=== PATIENT | female | born 1965 | race Caucasian/White ===

== ENCOUNTER 2021-05-10 10:02 | Inpatient (IN) | payer BC ==
[~2021-05-10] VITALS: Ht 162.6 cm; Wt 88.5 kg
--- NOTE | 2021-05-10 11:15 | PHYS DOC ---
Past Medical History Additional Past Medical Histor: HERNIA Past Surgical History: Other Additional Past Surgical Histo: COLPOSCOPY Smoking Status: Current Some Day Smoker Alcohol Use: Occasionally General Adult EDM: Chief Complaint: CHEST PAIN HPI: HPI: Patient is a 56-year-old female who presents to the emergency department with complaint of a slow onset of left sided chest pain that started approximately 6 AM this morning shortly after waking to get ready for work. Patient reports her pain was very low had a 1-2 out of 10 seem to be coming and going until approximately 7 AM it became constant and increased slowly to a 10 out of 10. Patient reports she made an appointment to see her primary care physician Dr. Garcia, states the office EKG machine was not working and they recommended she come to the emergency department for evaluation of her chest discomfort. Patient describes her pain as if someone is sitting on her chest currently rating her pain at a 9 out of 10. Radiates to her back, left shoulder and down her arm. Patient recent trauma. Does not take aspirin and was not treated with any medications at her primary care physician's office today. Patient does report nausea without vomiting abdominal pain constipation or diarrhea. Patient denies shortness of breath, chest or nasal congestion, denies chest palpitations, denies dizziness, syncopal or near syncopal episodes. Patient denies diaphoretic episodes. Patient denies increased urinary strain or increased thirst, denies increased urinary pressure, hematuria, or other dysuria. Patient reports a medical history of hypothyroid, ADHD, hyperlipidemia, fibromyalgia, reports this is not like her fibromyalgia pain. Patient reports a past surgical history of partial thyroidectomy on the left 2012, cholecystectomy and 1988. Patient reports her mother is generally healthy, father at age 70 of a sudden heart attack, reports paternal grandmother and grandfather in their 70s of heart attacks. Reports her brother and sister are generally healthy and denies history of diabetes or heart disease. Review of Systems: Review of Systems: 14 body systems of review of systems have been reviewed. See HPI for pertinent positives and negative responses, otherwise all other systems are negative, nonpertinent or noncontributory. Constitutional: Negative except as outlined in HPI above. Skin: Negative except as outlined in HPI above. Eyes: Negative except as outlined in HPI above. HENT: Negative except as outlined in HPI above. Respiratory: Negative except as outlined in HPI above. Cardiovascular: Negative except as outlined in HPI above. GI: Negative except as outlined in HPI above. : Negative except as outlined in HPI above. Musculoskeletal: Negative except as outlined in HPI above. Integument: Negative except as outlined in HPI above. Neurologic: Negative except as outlined in HPI above. Endocrine: Negative except as outlined in HPI above. Lymphatic: Negative except as outlined in HPI above. Psychiatric: Negative except as outlined in HPI above. Heart Score: C/O Chest Pain: Yes HEART Score for Chest Pain: HEART Score for Chest Pain Response (Comments) Value History Moderately Suspicious 1 ECG Normal 0 Age >45 - < 65 1 Risk Factors >3 Risk Factors or Hx CAD 2 Troponin < Normal Limit 0 Total 4 Risk Factors: Risk Factors: DM, Current or recent (<one month) smoker, HTN, HLP, family history of CAD, obesity. Risk Scores: Score 0 - 3: 2.5% MACE over next 6 weeks - Discharge Home Score 4 - 6: 20.3% MACE over next 6 weeks - Admit for Clinical Observation Score 7 - 10: 72.7% MACE over next 6 weeks - Early Invasive Strategies Current Medications: Current Medications Medications (Trade) Dose Ordered Sig/Lucas Start Time Stop Time Status Last Admin Dose Admin Aspirin (Aspirin Chewable) 324 mg 1X ONCE 05/10/21 11:00 05/10/21 11:01 UNV Physical Exam: PE: Constitutional: Well developed, well nourished, no acute distress, non-toxic appearance. 56-year-old female in no apparent distress. HENT: Normocephalic, atraumatic. Oropharynx moist, pink, no deep tissue infectious process appreciated. There is no lymphadenopathy of the head or neck appreciated. Bilateral TMs intact and within normal limits. Eyes: Conjunctiva normal, no discharge. Neck: Normal range of motion, no stridor. No JVD appreciated Cardiovascular: No cyanosis appreciated, distal cap refill less than 2 seconds. Regular rate and rhythm, heart sounds S1-S2 to auscultation. Lungs & Thorax: Patient is in no respiratory distress, lung sounds are clear to auscultation all lung joshi, normal work of breathing. No increased pain to palpation of the anterior thorax, equal rise and fall of chest, no subcu air, no crepitus appreciated. Abdomen: Nontender, no abnormalities noted. Bowel sounds normal all 4 quadrants, no pain to palpation of the abdomen, no skin discoloration appr eciated, old surgical scars present well-healed. Skin: Warm, dry, no erythema, no rash. Back: No tenderness, no deformities. Extremities: No tenderness, no cyanosis, no clubbing, ROM intact, no edema. Neurologic: Alert and oriented X 3, normal motor function, normal sensory function, no focal deficits noted. Psychologic: Affect normal, judgement normal, mood normal. Current Patient Data: Labs: Laboratory Tests Test 05/10/21 11:20 White Blood Count 9.5 x10^3/uL Red Blood Count 4.43 x10^6/uL Hemoglobin 13.0 g/dL Hematocrit 39.7 % Mean Corpuscular Volume 90 fL Mean Corpuscular Hemoglobin 29 pg Mean Corpuscular Hemoglobin Concent 33 g/dL Red Cell Distribution Width 14.1 % Platelet Count 314 x10^3/uL Neutrophils (%) (Auto) 55 % Lymphocytes (%) (Auto) 38 % Monocytes (%) (Auto) 5 % Eosinophils (%) (Auto) 1 % Basophils (%) (Auto) 2 % Neutrophils # (Auto) 5.2 x10^3/uL Lymphocytes # (Auto) 3.6 x10^3/uL Monocytes # (Auto) 0.4 x10^3/uL Eosinophils # (Auto) 0.1 x10^3/uL Basophils # (Auto) 0.1 x10^3/uL Prothrombin Time 11.3 SEC Prothromb Time International Ratio 0.8 D-Dimer (Monique) < 0.27 ug/mlFEU Sodium Level 141 mmol/L Potassium Level 4.2 mmol/L Chloride Level 103 mmol/L Carbon Dioxide Level 26 mmol/L Anion Gap 12 Blood Urea Nitrogen 11 mg/dL Creatinine 0.7 mg/dL Estimated GFR (Cockcroft-Gault) 86.6 BUN/Creatinine Ratio 16 Glucose Level 107 mg/dL Calcium Level 8.7 mg/dL Magnesium Level 2.0 mg/dL Total Bilirubin 0.2 mg/dL Aspartate Amino Transf (AST/SGOT) 23 U/L Alanine Aminotransferase (ALT/SGPT) 22 U/L Alkaline Phosphatase 66 U/L Troponin I High Sensitivity < 4 ng/L Total Protein 7.3 g/dL Albumin 3.5 g/dL Albumin/Globulin Ratio 0.9 Lipase 119 U/L Thyroid Stimulating Hormone (TSH) 0.656 uIU/mL Current Medications Medications (Trade) Dose Ordered Sig/Lucas Route PRN Reason Start Time Stop Time Status Last Admin Dose Admin Aspirin (Aspirin Chewable) 324 mg 1X ONCE PO 05/10/21 11:45 05/10/21 11:46 DC 05/10/21 11:53 Morphine Sulfate (Morphine Sulfate) 4 mg 1X ONCE IVP 05/10/21 11:45 05/10/21 11:46 DC 05/10/21 11:49 Ondansetron HCl (Zofran) 4 mg 1X ONCE IVP 05/10/21 11:45 05/10/21 11:46 DC 05/10/21 11:46 Nitroglycerin (Nitrostat) 0.4 mg PRN Q5MIN PRN SL CHEST PAIN 05/10/21 12:30 Vital Signs: Vital Signs Date Time Temp Pulse Resp B/P (MAP) Pulse Ox O2 Delivery O2 Flow Rate FiO2 05/10/21 10:30 98.1 94 18 139/81 (100) 97 Room Air 98.1 EKG: EKG: EKG performed at 10:16 AM by ED nursing staff shows a normal sinus rhythm without ectopy, heart rate is 88 bpm, CO interval 0.138, QTc interval 0.437, no acute STEMI, no ACS, no acute ischemia appreciated, EKG interpreted by ED attending physician Dr. Dior. Serial repeat EKG performed at 1226 by ED nursing staff shows a normal sinus rhythm without ectopy, heart rate is 71 bpm, CO interval 0.138, QTc interval 0.446, no acute STEMI, no ACS, no acute ischemia appreciated, EKG interpreted by ED attending physician Dr. Dior. Radiology/Procedures: Radiology/Procedures: REASON: Chest pain PROCEDURE: PORTABLE CHEST 1V XR CHEST 1V Clinical Indication: Reason: Chest pain / Spl. Instructions: / History: Comparison: None. Findings: The cardiomediastinal silhouette is normal. Lungs are clear. There is no pneumothorax. No pleural effusion is appreciated. No acute bone abnormality. IMPRESSION: No acute cardiopulmonary process. Electronically signed by: Jimmy Shah MD (05/10/2021 11:42 AM) [id number] Course & Med Decision Making: Course & Med Decision Making Pertinent Labs and Imaging studies reviewed. (See chart for details) 56-year-old female, vital signs reviewed, presents to the emergency department concerning left-sided chest pain radiation through to back left shoulder left arm. Physical examination is unremarkable, will order ED chest pain standard orders. Will give patient 324 chewable aspirin, Zofran for nausea, morphine for pain. Patient's chest x-ray is unremarkable, patient serial EKGs unremarkable, patient 's initial high-sensitivity troponin I is unremarkable, 3-hour serial high- sensitivity troponins pending, urinalysis assay still pending, patient reports nausea is relieved, pain has decreased to a 7 out of 10, will order sublingual nitroglycerin every 5 minutes x3 as needed chest pain. The patient HEART score equals 4, discussed with patient recommended admission to hospital for chest pain, patient does have a family history of sudden cardiac , patient is a cigarette smoker. Patient is amenable to ED admission planning. Discussed patient case and ED work-up with inpatient management physician Dr. Huntley who agrees patient's case warrants admission to the telemetry unit, will consult cardiology, patient is awaiting telemetry bed assignment by power house control room operator at this time. Patient's current vital signs heart rate 71 bpm, blood pressure 124/75, 99% room air saturation, 97.8 oral temperature. Patient has not yet been administered sublingual nitroglycerin, chest pain is currently a 7 out of 10. Unique Disclaimer: Unique Disclaimer: This electronic medical record was generated, in whole or in part, using a voice recognition dictation system. Departure Departure Impression: Primary Impression: Chest pain Qualified Codes: R07.9 - Chest pain, unspecified Disposition: ADMITTED INPATIENT Admitting Physician: CRISTIS (Admit to Dr. Huntley, consult cardiology Dr. Antonio) Condition: GUARDED Referrals: NO PCP (PCP) CHIRAG OLIVAS APRN May 10, 2021 11:15
[2021-05-10 11:33] LABS: BASO # 0.1 x10^3/uL (0.0-0.2); BASO % 2 % (0-3); EOS # 0.1 x10^3/uL (0.0-0.7); EOS % 1 % (0-3); HEMATOCRIT 39.7 % (36.0-47.0); LYMPH # 3.6 x10^3/uL (1.0-4.8); LYMPH % 38 % (24-48); MEAN CORPUSCULAR HEMOGLOBIN 29 pg (25-35); MEAN CORPUSCULAR HGB CONC 33 g/dL (31-37); MEAN CORPUSCULAR VOLUME 90 fL (79-100); MONO # 0.4 x10^3/uL (0.0-1.1); MONO % 5 % (0-9); NEUT # 5.2 x10^3/uL (1.8-7.7); NEUT % 55 % (31-73); PLATELET COUNT 314 x10^3/uL (140-400); RED BLOOD COUNT 4.43 x10^6/uL (3.50-5.40); RED CELL DISTRIBUTION WIDTH 14.1 % (11.5-14.5); WHITE BLOOD COUNT 9.5 x10^3/uL (4.0-11.0)
[2021-05-10 11:40] LABS: PROTHROMBIN TIME PATIENT 11.3 SEC (11.7-14.0)
[2021-05-10 11:43] LABS: D-DIMER < 0.27 ug/mlFEU (0.00-0.50)
[2021-05-10] MEDS ORDERED: MORPHINE SULFATE 4 MG/ML INJ. IVP ONE (11:45)
[2021-05-10] MEDS ORDERED: ONDANSETRON PF 4 MG/2 ML VIAL. IVP ONE (11:45)
[2021-05-10] MEDS ORDERED: ASPIRIN CHEWABLE 81 MG TABLET. PO ONE (11:45)
--- NOTE | 2021-05-10 11:45 | RAD ---
XR CHEST 1V Clinical Indication: Reason: Chest pain / Spl. Instructions: / History: Comparison: None. Findings: The cardiomediastinal silhouette is normal. Lungs are clear. There is no pneumothorax. No pleural eff usion is appreciated. No acute bone abnormality. IMPRESSION: No acute cardiopulmonary process. Electronically signed by: Jimmy Shah MD (05/10/2021 11:42 AM) [id number]
[2021-05-10 11:55] LABS: CALCIUM 8.7 mg/dL (8.5-10.1); CREATININE 0.7 mg/dL (0.6-1.0); GFR 86.6; POTASSIUM 4.2 mmol/L (3.5-5.1)
[2021-05-10 12:02] LABS: ALBUMIN 3.5 g/dL (3.4-5.0); ALBUMIN/GLOBULIN RATIO 0.9 (1.0-1.7); TOTAL BILIRUBIN 0.2 mg/dL (0.2-1.0); TOTAL PROTEIN 7.3 g/dL (6.4-8.2)
[2021-05-10] MEDS ORDERED: CALCIUM CARBONATE 500 MG TAB.CHEW PO PRN (12:45)
[2021-05-10] MEDS ORDERED: MORPHINE SULFATE 2 MG/ML INJ. IV PRN ×2 (12:45)
[2021-05-10] MEDS ORDERED: ZOLPIDEM 5 MG TABLET. PO PRN (12:45)
[2021-05-10] MEDS ORDERED: ONDANSETRON PF 4 MG/2 ML VIAL. IVP PRN (12:45)
[2021-05-10] MEDS ORDERED: ELECTROLYTE (NON-ICU) PROTOCOL. MC PRN (12:45)
[2021-05-10] MEDS ORDERED: ACETAMINOPHEN 325 MG TABLET. PO PRN (12:45)
[2021-05-10] MEDS: NITROGLYCERIN SUBLINGUAL 0.4 MG BOTTLE OF 25. SL PRN ×3 (12:51→19:02)
[2021-05-10 15:00] VITALS: BP 99/63
[2021-05-10] MEDS: NICOTINE 14MG PATCH. TD SCH (16:01)
[2021-05-10] MEDS: HEPARIN for SUB-Q USE 5,000 UNIT/ML VIAL. SQ SCH ×2 (16:05→21:04)
--- NOTE | 2021-05-10 18:06 | EKG ---
[facility] [address] [place] [address] Test Date: 2021-05-10 Test Time: 11:29:00 Pat Name: LUIS LACEY Department: Room: 210 1 Gender: F Director Of Tax Services: : 1965 Requested By: CHIRAG OLIVAS Order Number: [id number] Reading MD: Young Regan Measurements Intervals [place] Rate: 88 P: 47 KS: 130 QRS: 51 QRSD: 82 T: 41 QT: 358 QTc: 437 Interpretive Statements SINUS RHYTHM NORMAL ECG RI6.02 No previous ECG available for comparison Electronically Signed On 05-15-2021 18:54:47 RETAIL MANAGER by Yougn Regan
[2021-05-10] MEDS ORDERED: LEVO50TA5 PO (18:26)
[2021-05-10] MEDS ORDERED: TRAMADOL HCL (18:26)
[2021-05-10] MEDS ORDERED: adderall (18:26)
[2021-05-10] MEDS ORDERED: CITA40TA6 PO (18:26)
[2021-05-10 19:00] VITALS: BP 124/71
--- NOTE | 2021-05-10 19:00 | NUR ---
Pt. complaining of chest pain radiating to left jaw & arm. Same as earlier per patient. 1 tablet of Nitroglycerin given to pt as this helped relieve her symptoms earlier. VSS. Will continue to monitor.
--- NOTE | 2021-05-10 19:08 | PDOC1 ---
History and Physical Date of Service: DOS: DATE: 05/10/21 TIME: 19:08 Chief Complaint: Chief Complain: chest pain History of Present Illness: HPI: Patient is a 56-year-old female who presents to the emergency department with complaint of a slow onset of left sided chest pain that started approximately 6 AM this morning shortly after waking to get ready for work. Patient reports her pain was very low had a 1-2 out of 10 seem to be coming and going until approximately 7 AM it became constant and increased slowly to a 10 out of 10. Patient reports she made an appointment to see her primary care physician Dr. Garcia, states the office EKG machine was not working and they recommended she come to the emergency department for evaluation of her chest discomfort. Patient describes her pain as if someone is sitting on her chest currently rating her pain at a 9 out of 10. Radiates to her back, left shoulder and down her arm. Patient recent trauma. Does not take aspirin and was not treated with any medications at her primary care physician's office today. Patient does report nausea without vomiting abdominal pain constipation or diarrhea. Patient denies shortness of breath, chest or nasal congestion, denies chest palpitations, denies dizziness, syncopal or near syncopal episodes. Patient denies diaphoretic episodes. Patient denies increased urinary strain or increased thirst, denies increased urinary pressure, hematuria, or other dysuria. Patient reports a medical history of hypothyroid, ADHD, hyperlipidemia, fibromyalgia, reports this is not like her fibromyalgia pain. Patient reports a past surgical history of partial thyroidectomy on the left 2012, cholecystectomy and 1988. Patient reports her mother is generally healthy, father at age 70 of a sudden heart attack, reports paternal grandmother and grandfather in their 70s of heart attacks. Reports her brother and sister are generally healthy and denies history of diabetes or heart disease. Past Medical/Surgical History: PMH/PSH: hypothyroid, ADHD, hyperlipidemia, fibromyalgia Allergies: Allergies: Coded Allergies: No Known Drug Allergies (Unverified , 05/10/21) Family History: Family History: CAD Social History: Social History: daily tobacco use, occ alcohol, denies drugs Current Medications: Current Medications Current Medications Aspirin (Aspirin Chewable) 324 mg 1X ONCE PO Last administered on 05/10/21at 11:53; Start 05/10/21 at 11:45; Stop 05/10/21 at 11:46; Status DC Morphine Sulfate (Morphine Sulfate) 4 mg 1X ONCE IVP Last administered on 05/10/21at 11:49; Start 05/10/21 at 11:45; Stop 05/10/21 at 11:46; Status DC Ondansetron HCl (Zofran) 4 mg 1X ONCE IVP Last administered on 05/10/21at 11:46; Start 05/10/21 at 11:45; Stop 05/10/21 at 11:46; Status DC Nitroglycerin (Nitrostat) 0.4 mg PRN Q5MIN PRN SL CHEST PAIN Last administered on 05/10/21at 19:02; Start 05/10/21 at 12:30 Ondansetron HCl (Zofran) 4 mg PRN Q6HRS PRN IVP NAUSEA/VOMITING; Start 05/10/21 at 12:45 Calcium Carbonate/ Glycine (Tums) 500 mg PRN Q3HRS PRN PO UPSET STOMACH; Start 05/10/21 at 12:45 Zolpidem Tartrate (Ambien) 5 mg PRN QHS PRN PO INSOMNIA, MAY REPEAT IN 1HR; Start 05/10/21 at 12:45 Info (Non-Icu Electrolyte Protocol) 1 ea PRN DAILY PRN MC SEE COMMENTS; Start 05/10/21 at 12:45 Morphine Sulfate (Morphine Sulfate) 1 mg PRN Q1HR PRN IV PAIN; Start 05/10/21 at 12:45 Morphine Sulfate (Morphine Sulfate) 2 mg PRN Q1HR PRN IV PAIN; Start 05/10/21 at 12:45 Acetaminophen (Tylenol) 650 mg PRN Q6HRS PRN PO Headaches, Temp > 101.5F; Start 05/10/21 at 12:45 Senna/Docusate Sodium (Senna Plus) 1 tab BID PO ; Start 05/10/21 at 21:00 Heparin Sodium (Porcine) (Heparin Sodium) 5,000 unit Q8HRS SQ Last administered on 05/10/21at 16:05; Start 05/10/21 at 14:00 Nicotine (Nicoderm Cq 14mg) 1 patch DAILY TD Last administered on 05/10/21at 16:01; Start 05/10/21 at 16:00 Active Scripts Active Reported [adderall] [tramadol HCL] Levothyroxine Sodium 50 Mcg Tablet 1 Tab PO DAILY Citalopram Hbr (Citalopram Hydrobromide) 40 Mg Tablet 1 Tab PO DAILY ROS: Review of Systems Review of System Unless noted in HPI 14 point review systems was negative Physical Exam: Vital Signs: Vital Signs Date Time Temp Pulse Resp B/P (MAP) Pulse Ox O2 Delivery O2 Flow Rate FiO2 05/10/21 19:02 78 124/71 05/10/21 18:27 Room Air 05/10/21 15:00 97.8 18 100 97.8 Physcial Exam: GEN: No apparent distress. Alert and oriented HEENT: Normal cephalic, atraumatic, external auditory canals are patent EYES: Extraocular muscles are intact, pupil are equally round and reactive to light and accommodation MUSCULOSKELETAL: Well developed , well nourished, good range of motion ENDOCRINE: No thyromegaly was palpated LYMPHATICS: No cervical chain or axillary nodes were noted HEMATOPOIETIC: No bruising NECK: Supple, no JVD, no thyromegaly was noted LUNGS: Clear to auscultation in all lung joshi without rhonchi or wheezing HEART: RRR, S!, S2 present. Peripheral pulses intact, no obvious murmurs noted ABDOMEN: Soft, nontender. Positive bowel sounds, no organomegaly, normal bowel sounds EXTREMITIES: Without clubbing, cyanosis, or edema. Pedal pulses intact. Negative Homans sign NEUROLOGIC: Normal speech and tone. A&O x 3, moves all extremities, no obvious focal deficits PSYCHIATRIC: Normal affect, normal mood. Stable SKIN: No ulcerations or rashes, good skin turgor, no jaundice VASCULAR: Good capillary refill, neurovascular bundle appears to be intact Labs: Labs: Laboratory Tests Test 05/10/21 11:20 05/10/21 13:29 05/10/21 17:15 White Blood Count 9.5 x10^3/uL (4.0-11.0) Red Blood Count 4.43 x10^6/uL (3.50-5.40) Hemoglobin 13.0 g/dL (12.0-15.5) Hematocrit 39.7 % (36.0-47.0) Mean Corpuscular Volume 90 fL (79-100) Mean Corpuscular Hemoglobin 29 pg (25-35) Mean Corpuscular Hemoglobin Concent 33 g/dL (31-37) Red Cell Distribution Width 14.1 % (11.5-14.5) Platelet Count 314 x10^3/uL (140-400) Neutrophils (%) (Auto) 55 % (31-73) Lymphocytes (%) (Auto) 38 % (24-48) Monocytes (%) (Auto) 5 % (0-9) Eosinophils (%) (Auto) 1 % (0-3) Basophils (%) (Auto) 2 % (0-3) Neutrophils # (Auto) 5.2 x10^3/uL (1.8-7.7) Lymphocytes # (Auto) 3.6 x10^3/uL (1.0-4.8) Monocytes # (Auto) 0.4 x10^3/uL (0.0-1.1) Eosinophils # (Auto) 0.1 x10^3/uL (0.0-0.7) Basophils # (Auto) 0.1 x10^3/uL (0.0-0.2) Prothrombin Time 11.3 SEC (11.7-14.0) Prothromb Time International Ratio 0.8 (0.8-1.1) D-Dimer (Monique) < 0.27 ug/mlFEU Sodium Level 141 mmol/L (136-145) Potassium Level 4.2 mmol/L (3.5-5.1) Chloride Level 103 mmol/L (98-107) Carbon Dioxide Level 26 mmol/L (21-32) Anion Gap 12 (6-14) Blood Urea Nitrogen 11 mg/dL (7-20) Creatinine 0.7 mg/dL (0.6-1.0) Estimated GFR (Cockcroft-Gault) 86.6 BUN/Creatinine Ratio 16 (6-20) Glucose Level 107 mg/dL (70-99) Calcium Level 8.7 mg/dL (8.5-10.1) Magnesium Level 2.0 mg/dL (1.8-2.4) Total Bilirubin 0.2 mg/dL (0.2-1.0) Aspartate Amino Transf (AST/SGOT) 23 U/L (15-37) Alanine Aminotransferase (ALT/SGPT) 22 U/L (14-59) Alkaline Phosphatase 66 U/L (46-116) Troponin I High Sensitivity < 4 ng/L (4-50) < 4 ng/L (4-50) 6 ng/L (4-50) Total Protein 7.3 g/dL (6.4-8.2) Albumin 3.5 g/dL (3.4-5.0) Albumin/Globulin Ratio 0.9 (1.0-1.7) Lipase 119 U/L (73-393) Thyroid Stimulating Hormone (TSH) 0.656 uIU/mL (0.358-3.74) Laboratory Tests Test 05/10/21 11:20 05/10/21 13:29 05/10/21 17:15 White Blood Count 9.5 x10^3/uL (4.0-11.0) Red Blood Count 4.43 x10^6/uL (3.50-5.40) Hemoglobin 13.0 g/dL (12.0-15.5) Hematocrit 39.7 % (36.0-47.0) Mean Corpuscular Volume 90 fL (79-100) Mean Corpuscular Hemoglobin 29 pg (25-35) Mean Corpuscular Hemoglobin Concent 33 g/dL (31-37) Red Cell Distribution Width 14.1 % (11.5-14.5) Platelet Count 314 x10^3/uL (140-400) Neutrophils (%) (Auto) 55 % (31-73) Lymphocytes (%) (Auto) 38 % (24-48) Monocytes (%) (Auto) 5 % (0-9) Eosinophils (%) (Auto) 1 % (0-3) Basophils (%) (Auto) 2 % (0-3) Neutrophils # (Auto) 5.2 x10^3/uL (1.8-7.7) Lymphocytes # (Auto) 3.6 x10^3/uL (1.0-4.8) Monocytes # (Auto) 0.4 x10^3/uL (0.0-1.1) Eosinophils # (Auto) 0.1 x10^3/uL (0.0-0.7) Basophils # (Auto) 0.1 x10^3/uL (0.0-0.2) Prothrombin Time 11.3 SEC (11.7-14.0) Prothromb Time International Ratio 0.8 (0.8-1.1) D-Dimer (Monique) < 0.27 ug/mlFEU Sodium Level 141 mmol/L (136-145) Potassium Level 4.2 mmol/L (3.5-5.1) Chloride Level 103 mmol/L (98-107) Carbon Dioxide Level 26 mmol/L (21-32) Anion Gap 12 (6-14) Blood Urea Nitrogen 11 mg/dL (7-20) Creatinine 0.7 mg/dL (0.6-1.0) Estimated GFR (Cockcroft-Gault) 86.6 BUN/Creatinine Ratio 16 (6-20) Glucose Level 107 mg/dL (70-99) Calcium Level 8.7 mg/dL (8.5-10.1) Magnesium Level 2.0 mg/dL (1.8-2.4) Total Bilirubin 0.2 mg/dL (0.2-1.0) Aspartate Amino Transf (AST/SGOT) 23 U/L (15-37) Alanine Aminotransferase (ALT/SGPT) 22 U/L (14-59) Alkaline Phosphatase 66 U/L (46-116) Troponin I High Sensitivity < 4 ng/L (4-50) < 4 ng/L (4-50) 6 ng/L (4-50) Total Protein 7.3 g/dL (6.4-8.2) Albumin 3.5 g/dL (3.4-5.0) Albumin/Globulin Ratio 0.9 (1.0-1.7) Lipase 119 U/L (73-393) Thyroid Stimulating Hormone (TSH) 0.656 uIU/mL (0.358-3.74) Assessment/Plan Assessment/Plan Unstable angina, history of hypothyroid ADHD hyperlipidemia fibromyalgia -1 day history of chest pain. No known cardiac history but has family history of [place] later in life -Received 324 aspirin in emergency room. Pain mildly controlled with morphine -Cardiology consult -Trend troponins -Home meds as indicated -DVT prophylaxis -Cardiac diet Justifications for Admission Other Justification COLETTE BARRAGAN MD May 10, 2021 19:08
--- NOTE | 2021-05-10 19:30 | NUR ---
All chest pain/radiating pain relieved after nitro administration. Will continue to monitor.
[2021-05-10] MEDS: SENNOSIDES/DOCUSATE 8.6/50MG TABLET. PO SCH (21:03)
[2021-05-10 22:33] VITALS: BP 112/69
[2021-05-10 22:56] LABS: BILIRUBIN,URINE NEGATIVE (NEG); CLARITY,URINE CLEAR; COLOR,URINE YELLOW; NITRITE,URINE NEGATIVE (NEG); PROTEIN,URINE NEGATIVE (NEG-TRACE); UROBILINOGEN,URINE 0.2 mg/dL (0.2 mg/dL)
[2021-05-10 22:59] LABS: BACTERIA,URINE 0 /HPF (0-FEW); RBC,URINE 0 /HPF (0-2)
[2021-05-11] VITALS (12 sets, daily range): BP systolic 90–119; BP diastolic 62–76
[2021-05-11] MEDS: HEPARIN for SUB-Q USE 5,000 UNIT/ML VIAL. SQ SCH ×2 (06:09→14:00)
[2021-05-11] MEDS: NICOTINE 14MG PATCH. TD SCH (09:00)
[2021-05-11] MEDS: SENNOSIDES/DOCUSATE 8.6/50MG TABLET. PO SCH (09:00)
--- NOTE | 2021-05-11 09:39 | PDOC ---
[employer] PROGRESS NOTE Date of Service DOS: DATE: 05/11/21 TIME: 09:36 Chief Complaint Chief Complaint Unstable angina, history of hypothyroid ADHD hyperlipidemia fibromyalgia -1 day history of chest pain. No known cardiac history but has family history of [place] later in life -Received 324 aspirin in emergency room. Pain mildly controlled with morphine -pain improved with Nitro -Cardiology consult -Trend troponins --> negative x3 -Home meds as indicated -DVT prophylaxis -Cardiac diet History of Present Illness History of Present Illness 05/11 Patient evaluated examined at bedside. She was resting in bed asleep. Overnight had some chest pain with radiation to right arm. Cardiology consulted. If cleared by cardiology could possibly discharge this afternoon but may need further work-up. Discussed with bedside RN. Vitals/I&O Vitals/I&O: Vital Signs Date Time Temp Pulse Resp B/P (MAP) Pulse Ox O2 Delivery O2 Flow Rate FiO2 05/11/21 07:54 Room Air 05/11/21 07:00 98.0 70 18 103/70 (81) 93 98.0 I & O 05/10/21 05/10/21 05/11/21 15:00 23:00 07:00 Intake Total 480 ml Output Total 800 ml Balance -320 ml Physical Exam General: Alert, Oriented X3, Cooperative Heart: Regular rate, Normal S1, Normal S2 Lungs: Clear Abdomen: Normal bowel sounds, Soft, No tenderness Extremities: No edema, Normal pulses Skin: No significant lesion Labs Labs: Laboratory Tests Test 05/10/21 11:20 05/10/21 13:29 05/10/21 17:15 05/10/21 22:45 White Blood Count 9.5 x10^3/uL (4.0-11.0) Red Blood Count 4.43 x10^6/uL (3.50-5.40) Hemoglobin 13.0 g/dL (12.0-15.5) Hematocrit 39.7 % (36.0-47.0) Mean Corpuscular Volume 90 fL (79-100) Mean Corpuscular Hemoglobin 29 pg (25-35) Mean Corpuscular Hemoglobin Concent 33 g/dL (31-37) Red Cell Distribution Width 14.1 % (11.5-14.5) Platelet Count 314 x10^3/uL (140-400) Neutrophils (%) (Auto) 55 % (31-73) Lymphocytes (%) (Auto) 38 % (24-48) Monocytes (%) (Auto) 5 % (0-9) Eosinophils (%) (Auto) 1 % (0-3) Basophils (%) (Auto) 2 % (0-3) Neutrophils # (Auto) 5.2 x10^3/uL (1.8-7.7) Lymphocytes # (Auto) 3.6 x10^3/uL (1.0-4.8) Monocytes # (Auto) 0.4 x10^3/uL (0.0-1.1) Eosinophils # (Auto) 0.1 x10^3/uL (0.0-0.7) Basophils # (Auto) 0.1 x10^3/uL (0.0-0.2) Prothrombin Time 11.3 SEC (11.7-14.0) Prothromb Time International Ratio 0.8 (0.8-1.1) D-Dimer (Monique) < 0.27 ug/mlFEU Sodium Level 141 mmol/L (136-145) Potassium Level 4.2 mmol/L (3.5-5.1) Chloride Level 103 mmol/L (98-107) Carbon Dioxide Level 26 mmol/L (21-32) Anion Gap 12 (6-14) Blood Urea Nitrogen 11 mg/dL (7-20) Creatinine 0.7 mg/dL (0.6-1.0) Estimated GFR (Cockcroft-Gault) 86.6 BUN/Creatinine Ratio 16 (6-20) Glucose Level 107 mg/dL (70-99) Calcium Level 8.7 mg/dL (8.5-10.1) Magnesium Level 2.0 mg/dL (1.8-2.4) Total Bilirubin 0.2 mg/dL (0.2-1.0) Aspartate Amino Transf (AST/SGOT) 23 U/L (15-37) Alanine Aminotransferase (ALT/SGPT) 22 U/L (14-59) Alkaline Phosphatase 66 U/L (46-116) Troponin I High Sensitivity < 4 ng/L (4-50) < 4 ng/L (4-50) 6 ng/L (4-50) Total Protein 7.3 g/dL (6.4-8.2) Albumin 3.5 g/dL (3.4-5.0) Albumin/Globulin Ratio 0.9 (1.0-1.7) Lipase 119 U/L (73-393) Thyroid Stimulating Hormone (TSH) 0.656 uIU/mL (0.358-3.74) Urine Collection Type Unknown Urine Color Yellow Urine Clarity Clear Urine pH 7.0 (<5.0-8.0) Urine Specific [place] 1.015 (1.000-1.030) Urine Protein Negative mg/dL (NEG-TRACE) Urine Glucose (UA) Negative mg/dL (NEG) Urine Ketones (Stick) Negative mg/dL (NEG) Urine Blood Negative (NEG) Urine Nitrite Negative (NEG) Urine Bilirubin Negative (NEG) Urine Urobilinogen Dipstick 0.2 mg/dL (0.2 mg/dL) Urine Leukocyte Esterase Negative (NEG) Urine RBC 0 /HPF (0-2) Urine WBC 1-4 /HPF (0-4) Urine Squamous Epithelial Cells Mod /LPF Urine Bacteria 0 /HPF (0-FEW) Comment Review of Relevant I have reviewed the following items aniya (where applicable) has been applied. Medications: Current Medications Medications (Trade) Dose Ordered Sig/Lucas Route PRN Reason Start Time Stop Time Status Last Admin Dose Admin Aspirin (Aspirin Chewable) 324 mg 1X ONCE PO 05/10/21 11:45 05/10/21 11:46 DC 05/10/21 11:53 Morphine Sulfate (Morphine Sulfate) 4 mg 1X ONCE IVP 05/10/21 11:45 05/10/21 11:46 DC 05/10/21 11:49 Ondansetron HCl (Zofran) 4 mg 1X ONCE IVP 05/10/21 11:45 05/10/21 11:46 DC 05/10/21 11:46 Nitroglycerin (Nitrostat) 0.4 mg PRN Q5MIN PRN SL CHEST PAIN 05/10/21 12:30 05/10/21 19:02 Zolpidem Tartrate (Ambien) 5 mg PRN QHS PRN PO INSOMNIA, MAY REPEAT IN 1HR 05/10/21 12:45 05/10/21 21:03 Senna/Docusate Sodium (Senna Plus) 1 tab BID PO 05/10/21 21:00 05/10/21 21:03 Heparin Sodium (Porcine) (Heparin Sodium) 5,000 unit Q8HRS SQ 05/10/21 14:00 05/11/21 06:09 Nicotine (Nicoderm Cq 14mg) 1 patch DAILY TD 05/10/21 16:00 05/10/21 16:01 Justifications for Admission Other Justification COLETTE BARRAGAN MD May 11, 2021 09:39
--- NOTE | 2021-05-11 09:52 | NUR ---
SW following. Discussed with RN, pt from home, room air, NPO. Cardiology following - cardiac work up pending. RN advised no SW needs at this time. SW will continue to follow.
[2021-05-11] MEDS ORDERED: IV NORMAL SALINE 1000ML BAG 1,000 ML IV ONE (10:30)
--- NOTE | 2021-05-11 10:41 | PDOC2 ---
JEN VALENCIA CHAIN MENDER 05/11/21 1041: CARDIAC CONSULT DATE OF CONSULT Date of Consult DATE: 05/11/21 TIME: 10:29 REASON FOR CONSULT Reason for Consult: Chest pain REFERRING PHYSICIAN Referring Physician: Johnathan SOURCE Source: Chart review, Patient HISTORY OF PRESENT ILLNESS HISTORY OF PRESENT ILLNESS This is a pleasant 56 yo female admitted for complains of chest pain. Reports that this is like someone is sitting on her chest and pain radiating to jaw and left arm. Also associated with nausea, diaphoresis and SOA. This has been ongoing for the last 2 weeks and 2 episodes where it lasted about 15-30 min before getting any better. Her symptoms yesterday lasted for 2 hours and did not get better until ASA and 2 NTG in ED. No prior CAD, VTE, arrhythmias. Also no recent covid-19 and she is vaccinated. Denies any falls or any recent injury and no GERD. She was also having palpitations during her symptoms. She has not take adderall in a while. No recreational drug use but a chronic tobaccoism. PAST MEDICAL HISTORY Psych: Anxiety, Other (ADHD) Musculoskeletal: Osteoarthritis Rheumatologic: Fibromyalgia ENT: Allergic Rhinitis Endocrine: Hypothyroidism (thyroid nodule), Other (metabolic syndrome) Dermatology: No pertinent hx PAST SURGICAL HISTORY Past Surgical History: Cholecystectomy, , Other (partial thyroidec erick, D&C) FAMILY HISTORY Family History: Coronary Artery Disease (father at 48) SOCIAL HISTORY Smoke: 1 pack per day ALCOHOL: rare Drugs: None Lives: with Family CURRENT MEDICATIONS CURRENT MEDICATIONS Current Medications Medications (Trade) Dose Ordered Sig/Lucas Route PRN Reason Start Time Stop Time Status Last Admin Dose Admin Aspirin (Aspirin Chewable) 324 mg 1X ONCE PO 05/10/21 11:45 05/10/21 11:46 DC 05/10/21 11:53 Morphine Sulfate (Morphine Sulfate) 4 mg 1X ONCE IVP 05/10/21 11:45 05/10/21 11:46 DC 05/10/21 11:49 Ondansetron HCl (Zofran) 4 mg 1X ONCE IVP 05/10/21 11:45 05/10/21 11:46 DC 05/10/21 11:46 Nitroglycerin (Nitrostat) 0.4 mg PRN Q5MIN PRN SL CHEST PAIN 05/10/21 12:30 05/10/21 19:02 Zolpidem Tartrate (Ambien) 5 mg PRN QHS PRN PO INSOMNIA, MAY REPEAT IN 1HR 05/10/21 12:45 05/10/21 21:03 Senna/Docusate Sodium (Senna Plus) 1 tab BID PO 05/10/21 21:00 05/10/21 21:03 Heparin Sodium (Porcine) (Heparin Sodium) 5,000 unit Q8HRS SQ 05/10/21 14:00 05/11/21 06:09 Nicotine (Nicoderm Cq 14mg) 1 patch DAILY TD 05/10/21 16:00 05/10/21 16:01 ALLERGIES ALLERGIES: Coded Allergies: No Known Drug Allergies (Unverified , 05/10/21) ROS Review of System 14 point ROS evaluated with pertinent positives noted per HPI PHYSICAL EXAM General: Alert, Oriented X3, Cooperative, No acute distress HEENT: Atraumatic, Mucous membr. moist/pink Lungs: Clear to auscultation, Normal air movement Heart: Regular rate (SR), Normal S1, Normal S2, No murmurs Abdomen: Soft, No tenderness Extremities: No cyanosis, No edema Skin: No breakdown, No significant lesion Neuro: Normal speech, Sensation intact Psych/Mental Status: Mental status NL, Mood NL MUSCULOSKELETAL: Osteoarthritic changes both hands VITALS/I&O VITALS/I&O: Vital Signs Date Time Temp Pulse Resp B/P (MAP) Pulse Ox O2 Delivery O2 Flow Rate FiO2 05/11/21 07:54 Room Air 05/11/21 07:00 98.0 70 18 103/70 (81) 93 98.0 I & O 05/10/21 05/10/21 05/11/21 15:00 23:00 07:00 Intake Total 480 ml Output Total 800 ml Balance -320 ml LABS Lab: Laboratory Tests Test 05/10/21 11:20 05/10/21 13:29 05/10/21 17:15 05/10/21 22:45 White Blood Count 9.5 x10^3/uL (4.0-11.0) Red Blood Count 4.43 x10^6/uL (3.50-5.40) Hemoglobin 13.0 g/dL (12.0-15.5) Hematocrit 39.7 % (36.0-47.0) Mean Corpuscular Volume 90 fL (79-100) Mean Corpuscular Hemoglobin 29 pg (25-35) Mean Corpuscular Hemoglobin Concent 33 g/dL (31-37) Red Cell Distribution Width 14.1 % (11.5-14.5) Platelet Count 314 x10^3/uL (140-400) Neutrophils (%) (Auto) 55 % (31-73) Lymphocytes (%) (Auto) 38 % (24-48) Monocytes (%) (Auto) 5 % (0-9) Eosinophils (%) (Auto) 1 % (0-3) Basophils (%) (Auto) 2 % (0-3) Neutrophils # (Auto) 5.2 x10^3/uL (1.8-7.7) Lymphocytes # (Auto) 3.6 x10^3/uL (1.0-4.8) Monocytes # (Auto) 0.4 x10^3/uL (0.0-1.1) Eosinophils # (Auto) 0.1 x10^3/uL (0.0-0.7) Basophils # (Auto) 0.1 x10^3/uL (0.0-0.2) Prothrombin Time 11.3 SEC (11.7-14.0) L Prothrombin Time INR 0.8 (0.8-1.1) D-Dimer (Monique) < 0.27 ug/mlFEU Sodium Level 141 mmol/L (136-145) Potassium Level 4.2 mmol/L (3.5-5.1) Chloride Level 103 mmol/L (98-107) Carbon Dioxide Level 26 mmol/L (21-32) Anion Gap 12 (6-14) Blood Urea Nitrogen 11 mg/dL (7-20) Creatinine 0.7 mg/dL (0.6-1.0) Estimated GFR (Cockcroft-Gault) 86.6 BUN/Creatinine Ratio 16 (6-20) Glucose Level 107 mg/dL (70-99) H Calcium Level 8.7 mg/dL (8.5-10.1) Magnesium Level 2.0 mg/dL (1.8-2.4) Total Bilirubin 0.2 mg/dL (0.2-1.0) Aspartate Amino Transferase (AST) 23 U/L (15-37) Alanine Aminotransferase (ALT) 22 U/L (14-59) Alkaline Phosphatase 66 U/L (46-116) Troponin I High Sensitivity < 4 ng/L (4-50) L < 4 ng/L (4-50) L 6 ng/L (4-50) Total Protein 7.3 g/dL (6.4-8.2) Albumin 3.5 g/dL (3.4-5.0) Albumin/Globulin Ratio 0.9 (1.0-1.7) L Lipase 119 U/L (73-393) Thyroid Stimulating Hormone (TSH) 0.656 uIU/mL (0.358-3.74) Urine Collection Type Unknown Urine Color Yellow Urine Clarity Clear Urine pH 7.0 (<5.0-8.0) Urine Specific [place] 1.015 (1.000-1.030) Urine Protein Negative mg/dL (NEG-TRACE) Urine Glucose (UA) Negative mg/dL (NEG) Urine Ketones (Stick) Negative mg/dL (NEG) Urine Blood Negative (NEG) Urine Nitrite Negative (NEG) Urine Bilirubin Negative (NEG) Urine Urobilinogen Dipstick 0.2 mg/dL (0.2 mg/dL) Urine Leukocyte Esterase Negative (NEG) Urine RBC 0 /HPF (0-2) Urine WBC 1-4 /HPF (0-4) Urine Squamous Epithelial Cells Mod /LPF Urine Bacteria 0 /HPF (0-FEW) Laboratory Tests 05/10/21 11:20 Laboratory Tests 05/10/21 11:20 ASSESSMENT/PLAN ASSESSMENT/PLAN 1. Chest pain: UA features 2. Chronic tobacco use: 48 pk yr 3. Family hx of premature CAD 4. Obesity 5. Metabolic syndrome 6. Hypothyroidism: on replacement. TSH on goal Recommendations 1. UA features and concerning s/s progressive CP relieved by x2 NTG. High pro bability with pretest CAD. Ischemic workup discussed and would like to proceed with [facility]. Risks and benefits discussed 2. ASA 3. FLP 4. Smoking cessation THAIS CRAIN MD 05/12/21 1201: CARDIAC CONSULT ASSESSMENT/PLAN ASSESSMENT/PLAN Late entry for 05/11/21. Pt. seen and examined. Agree with above FINISHING ROOM OPERATOR note. Heart cath did not reveal any significant obstructive pathology. JEN VALENCIA APRN May 11, 2021 10:41 THAIS CRAIN MD May 12, 2021 12:01
[2021-05-11 12:08] LABS: CHOLESTEROL/HDL RATIO 6.1
[2021-05-11] MEDS ORDERED: LIDOCAINE 1% PF 2 ML VIAL. ONE (13:39)
[2021-05-11] MEDS ORDERED: IODIXANOL 320 MG/ML 100 ML VIAL. ONE (13:40)
[2021-05-11] MEDS ORDERED: HEPARIN for IV BOLUS 10,000 UNIT/10 ML VIAL. ONE (13:55)
[2021-05-11] MEDS ORDERED: NITROGLYCERIN 200 MCG/2 ML SYRINGE FOR CATH/VASC LAB. ONE (13:55)
[2021-05-11] MEDS ORDERED: VERAPAMIL 5 MG/2 ML VIAL. ONE (13:55)
[2021-05-11] MEDS ORDERED: fentaNYL PF VIAL 100 MCG/2 ML VIAL ONE (13:55)
[2021-05-11] MEDS ORDERED: MIDAZOLAM HCL/PF 2 MG/2 ML VIAL. ONE ×2 (13:55→14:29)
[2021-05-11] MEDS ORDERED: LIDOCAINE 1% PF 2 ML VIAL. INJ ONE (14:45)
[2021-05-11] MEDS ORDERED: VERAPAMIL 5 MG/2 ML VIAL. IART ONE (14:45)
[2021-05-11] MEDS ORDERED: IODIXANOL 320 MG/ML 100 ML VIAL. IART ONE (14:45)
[2021-05-11] MEDS ORDERED: NITROGLYCERIN 200 MCG/2 ML SYRINGE FOR CATH/VASC LAB. IART ONE (14:45)
[2021-05-11] MEDS ORDERED: HEPARIN for IV BOLUS 10,000 UNIT/10 ML VIAL. IART ONE (14:45)
[2021-05-11] MEDS ORDERED: fentaNYL PF VIAL 100 MCG/2 ML VIAL IV ONE (14:45)
[2021-05-11] MEDS ORDERED: LIDOCAINE 1% Multi-Dose 20 ML VIAL. INJ ONE (14:45)
[2021-05-11] MEDS ORDERED: CONTRAST GIVEN. MC PRN (14:45)
[2021-05-11] MEDS ORDERED: MIDAZOLAM HCL/PF 2 MG/2 ML VIAL. IV ONE (15:00)
--- NOTE | 2021-05-11 15:15 | CARD ---
MR#: [id number] Date of Study: 05/11/2021 Ordering Physician: JEN VALENCIA, Referring Physician: JEN VALENCIA, Tech: RT Jorge(R) APPROVED REPORT Technologist: Giselle Momin RT(R) Nurse: Sarai Rachel RN Procedure(s) performed: MODERATE SEDATION TIME: 38 MINUTES FLUORO TIME: 3.9 MIN DOSE: 48.9 GYCM2 CONTRAST: 87CC VISI LHC, Coronary angiography, Left ventriculogram HISTORY : The patient is a 56 year-old female with a history of . INDICATION The indication(s) include : unstable angina . [facility] Clinical Frailty Scale [facility] Clinical Frailty Scale: Managing Well Heart Failure Heart Failure: No CASE TECHNIQUE IV conscious sedation was used throughout procedure with appropriate monitoring and was performed in the presence of a registered nurse who was an independent trained observer other than the physician p erforming the procedure. During this case, Fluoroscopy and low osmolar contrast were used for imaging . Specimen(s) Removed: N/A Estimated Blood loss: 10 cc's. PROCEDURE NARRATIVE Clinical information: 56 y.o woman presents for unstable angina. Informed consent: Written informed consent was obtained from the patient after adequate discussion of the risks and dominick efits of the procedure. Procedure details: ACCESS: The right wrist was prepped and draped in usual sterile fashion. Under 1% lidocaine local anesthesia a 6 [place] Terumo sheath was placed in the right radial artery via the Seldinger technique. DIAGNOSTIC ANGIOGRAPHY: Right and left coronary arteries were engaged with a 6 [place] TIG catheter. Diagnostic angiography i n multiple views were obtained. Next, a 6 [place] pigtail catheter was placed in the left ventricle a nd a LVEDP was measured. A pullback was performed after left ventriculography. All catheters were e xchanged over J-tip guidewire. FINDINGS: ======= Aorta: 110/80 LVEDP: 15 mmHg Left ventriculogram: Ejection fraction 55% Normal wall motion without any evidence of aortic or mitral insufficiency. Coronary angiography: LM: Large caliber vessel with normal angiographic appearance LAD: Large caliber vessel with a proximal 50% stenosis. T D1: Small caliber vessel with normal angiographic appearance LCX: Moderate caliber non-dominant vessel with mild luminal irregularities OM1: Moderate caliber vessel with mild proximal 30% stenosis. RCA: Large caliber dominant vessel with mild irregularities of up to 30%. RPDA: Moderate caliber vessel with mild luminal irregularities. CLOSURE: At case completion the right radial sheath was removed and a Terumo radial band was applied with 11 m L of air. Hemostasis was achieved. COMPLICATIONS: No acute complications noted Conclusion 1. Normal left sided filling pressures. 2. Normal LV systolic function. EF 55% 3. No significant coronary disease. 4. Chest pain likely secondary to coronary vasospasm. Recommendations Smoking Cessation Aggressive Medical Therapy Weight Loss Reduction Program Signed by : Justyn Dotson, Electronically Approved : 05/11/2021 15:14:56
[2021-05-11] MEDS ORDERED: AMLO2.5T5 PO (17:35)
[2021-05-11] MEDS ORDERED: ASPI-630 PO (17:38)
[2021-05-11] MEDS ORDERED: ATOR40TA59 PO (17:38)
--- NOTE | 2021-05-11 18:37 | NUR ---
DISCHARGED PATIENT TO HOME. DISCHARGE INSTRUCTIONS GIVEN. PIV AND HEART MONITOR REMOVED. ESCORTED PATIENT OFF UNIT PER WHEELCHAIR INTO A PRIVATE VEHICLE.
[2021-05-11] MEDS ORDERED: ATORVASTATIN CALCIUM 40 MG TABLET. PO SCH (21:00)
[2021-05-12] MEDS ORDERED: ASPIRIN ENTERIC COATED 81 MG TABLET.DR. PO SCH (08:00)
--- NOTE | 2021-05-13 08:58 | EKG ---
[facility] [address] [place] [address] Test Date: 2021-05-10 Test Time: 12:26:08 Pat Name: LUIS LACEY Department: Room: Gender: F Advertising Sales Manager: : 1965 Requested By: CHIRAG OLIVAS Order Number: [id number] Reading MD: Young Regan Measurements Intervals [place] Rate: 71 P: 40 AL: 138 QRS: 45 QRSD: 86 T: 39 QT: 406 QTc: 446 Interpretive Statements SINUS RHYTHM NORMAL ECG RI6.02 Compared to ECG 03/06/1999 00:16:17 No significant changes Electronically Signed On 05-13-2021 8:58:02 SQUARING MACHINE OPERATOR by Young Regan
[2021-05-26] MEDS ORDERED: OXYC1TAB15 PO (09:06)
== END 2021-05-11 18:40 | disposition home or self-care (01) | DRG 287 ==
LOC: ER 10:02 → 2 NORTH 12:30 → 6 SOUTH 05-11 13:55
PROVIDERS: ADMIT Student in an Organized Health Care Education/Training Program; ATTEND Student in an Organized Health Care Education/Training Program
PROC: 4A023N7 Measurement of Cardiac Sampling and Pressure, Left Heart, Percutaneous Approach (ICD-10-PCS; principal; 2021-05-10)
PROC: B2151ZZ Fluoroscopy of Left Heart using Low Osmolar Contrast (ICD-10-PCS; 2021-05-10)
PROC: B2111ZZ Fluoroscopy of Multiple Coronary Arteries using Low Osmolar Contrast (ICD-10-PCS; 2021-05-10)
DX: I20.0 Unstable angina (principal); I20.1 Angina pectoris with documented spasm; E03.9 Hypothyroidism, unspecified; E66.9 Obesity, unspecified; E78.5 Hyperlipidemia, unspecified; E88.81 Metabolic syndrome and other insulin resistance; F17.210 Nicotine dependence, cigarettes, uncomplicated; F90.9 Attention-deficit hyperactivity disorder, unspecified type; M79.7 Fibromyalgia; Z82.49 Family history of ischemic heart disease and other diseases of the circulatory system; F41.9 Anxiety disorder, unspecified; M19.90 Unspecified osteoarthritis, unspecified site; Z68.33 Body mass index [BMI] 33.0-33.9, adult; Z20.822 Contact with and (suspected) exposure to COVID-19
CPT/HCPCS: 36415; 71045; 80053; 80061; 81001; 83690; 83735; 84443; 84484; 85025; 85379; 85610; 87426; 93005; 93458; 96374; 96375; 99152; 99153; C1769; C1894; J1644; J2250; J2270; J2405; J3010; J3490; J7030; Q9967; U0003; 99285-25; G0378

== ENCOUNTER 2021-05-25 06:27 | Observation (INO) | payer BC ==
[~2021-05-25] VITALS: Ht 160 cm; Wt 86.0 kg
[2021-05-25] VITALS (11 sets, daily range): BP systolic 87–118; BP diastolic 51–72
[~2021-05-25 06:27] MED LIST: AMLO2.5T5 PO; ASPI-630 PO; ATOR40TA59 PO; CITA40TA6 PO; IV RINGERS,LACTATED 1000ML 1,000 ML IV SCH; LEVO50TA5 PO; MORPHINE SULFATE 2 MG/ML INJ. IVP PRN; PROCHLORPERAZINE 10 MG/2 ML VIAL. IVP PRN; TRAMADOL HCL; adderall; fentaNYL PF VIAL 100 MCG/2 ML VIAL IVP PRN
[2021-05-25 07:21] LABS: CALCIUM 8.6 mg/dL (8.5-10.1); CREATININE 0.8 mg/dL (0.6-1.0); GFR 74.2; POTASSIUM 4.1 mmol/L (3.5-5.1)
[2021-05-25 07:23] LABS: ALBUMIN 3.4 g/dL (3.4-5.0); ALBUMIN/GLOBULIN RATIO 0.9 (1.0-1.7); TOTAL BILIRUBIN 0.3 mg/dL (0.2-1.0)
[2021-05-25] MEDS ORDERED: PROPOFOL 10 MG/ML (20ML) VIAL. IV ONE ×2 (07:24→10:04)
[2021-05-25] MEDS ORDERED: DEXAMETHASONE SOD PHOS 4 MG/ML VIAL ONE (07:24)
[2021-05-25] MEDS ORDERED: SEVOFLURANE 61 TO 120 MINUTES. IH ONE (07:24)
[2021-05-25] MEDS ORDERED: ROCURONIUM 50 MG/5 ML VIAL. ONE ×2 (07:24→09:38)
[2021-05-25] MEDS ORDERED: ONDANSETRON PF 4 MG/2 ML VIAL. ONE (07:24)
[2021-05-25] MEDS ORDERED: LIDOCAINE 2% PF 5 ML VIAL. ONE (07:24)
[2021-05-25] MEDS ORDERED: MIDAZOLAM HCL/PF 2 MG/2 ML VIAL. ONE (07:25)
[2021-05-25] MEDS ORDERED: fentaNYL PF VIAL 100 MCG/2 ML VIAL ONE (07:25)
[2021-05-25] MEDS ORDERED: METHYLENE BLUE 0.5% 10ml AMPULE. ONE (07:26)
[2021-05-25] MEDS ORDERED: SUCCINYLCHOLINE 200 MG/10 ML VIAL. ONE (07:31)
--- NOTE | 2021-05-25 07:34 | PDOC1 ---
DENTAL PRACTICE MANAGER H&P Date of Admission: Date of Admission: History of Present Illness: 56y presents for scheduled surgery. The pt was initially referred after she was found to have an abnml pap. (LSIL/HPV pos). She was found to have ANTONIETTA II on her bx and ECC. The pt has had LEEP within the last 4yrs ago. Discussed tx options of excisional or ablative procedure. The pt understands that a hysterectomy is not the primary tx, but since her dysplasia is recurrent, she was hoping to pursue this option. She would like the hysterectomy not just due to the dysplasia but due to her pelvic pain. The pt has had a BTL. And had an Ablation in 2006 for her menorrhagia. The pt underwent a heart cath yesterday. She was found to have a small blockage. PMH: Thyroid nodual, depression/anxiety/ADHD, Seasonal allergies, Hypothyroidism, Polyarthralgia, Fibromyalgia. PSH: partial thyroidectomy, (left lower lobe), D&C, cholecystectomy, section x3 , carpal tunnel release right, LEEP, Endometrial ablation 2006. Meds: ASA, atorvastatin 40 mg tablet 1 tab(s) orally once a day, amLODIPine 2.5 mg tablet 1 tab(s) orally once a day, Flonase, Albuterol HFA, levothyroxine, cyclobenzaprine, traMADol, Adderall, Xanax, citalopram , All: NKDA OBHx: 3 x TC/S. Chart Calculator: LMP 2006 12yo / regular / 41yo (surgical/ablation) Never ERT/HRT H/o LEEP SH: 1/2 PPRD, rare EtOH FH: noncontributory Past Medical History: Psych: Anxiety, Other Musculoskeletal: Osteoarthritis Rheumatologic: Fibromyalgia Endocrine: Hypothyroidism, Other Past Surgical History: Cholecystectomy, , Other Social History: ALCOHOL: rare Drugs: None Medications: Meds: Current Medications Medications (Trade) Dose Ordered Sig/Lucas Route PRN Reason Start Time Stop Time Status Last Admin Dose Admin Ringer's Solution 1,000 ml @ 30 mls/hr Q24H IV 05/25/21 06:00 05/25/21 17:59 05/25/21 06:59 Allergies: Coded Allergies: No Known Drug Allergies (Unverified , 05/25/21) Physical Exam: Vital Signs: Vital Signs Date Time Temp Pulse Resp B/P (MAP) Pulse Ox O2 Delivery O2 Flow Rate FiO2 05/25/21 06:55 97.6 75 20 118/64 95 Room Air 97.6 PE: GENERAL: No apparent distress. Alert and oriented. HEENT: Head normocephalic, atraumatic. NECK: Supple LUNGS: Clear to auscultation. HEART: RRR, S1, S2 present, pulses intact ABDOMEN: Soft, positive bowel sounds. EXTREMITIES: No cyanosis or edema. NEUROLOGIC: Normal speech, normal tone PSYCHIATRIC: Normal affect, normal mood. SKIN: No ulceration. Labs: Laboratory Tests Test 05/25/21 06:50 Sodium Level 138 mmol/L (136-145) Potassium Level 4.1 mmol/L (3.5-5.1) Chloride Level 105 mmol/L (98-107) Carbon Dioxide Level 27 mmol/L (21-32) Anion Gap 6 (6-14) Blood Urea Nitrogen 10 mg/dL (7-20) Creatinine 0.8 mg/dL (0.6-1.0) Estimated GFR (Cockcroft-Gault) 74.2 BUN/Creatinine Ratio 13 (6-20) Glucose Level 108 mg/dL (70-99) H Calcium Level 8.6 mg/dL (8.5-10.1) Total Bilirubin 0.3 mg/dL (0.2-1.0) Aspartate Amino Transferase (AST) 14 U/L (15-37) L Alanine Aminotransferase (ALT) 28 U/L (14-59) Alkaline Phosphatase 71 U/L (46-116) Total Protein 7.0 g/dL (6.4-8.2) Albumin 3.4 g/dL (3.4-5.0) Albumin/Globulin Ratio 0.9 (1.0-1.7) L Laboratory Tests 05/25/21 06:50 Laboratory Tests 05/25/21 06:50 Assessment & Plan: A/P 56y with LSIL/HPV pos pap 1.) LSIL/HPV pos pap - ANTONIETTA II on bx and ECC. Recently had LEEP. Scheduled for LAVH/BSO 2.) H/o dysplasia - LEEP ~4yrs ago 3.) Pelvic pain - will schedule for LAVH/BSO 4.) Prev C/S x 3 5.) Menorrhagia - resolved with ablation in 2006 6.) Menopause - mild symptoms, never ERT/HRT 7.) Dyspareunia CHIRAG BARNES MD May 25, 2021 07:34
[2021-05-25 07:36] LABS: BASO # 0.1 x10^3/uL (0.0-0.2); BASO % 1 % (0-3); EOS # 0.3 x10^3/uL (0.0-0.7); EOS % 2 % (0-3); HEMATOCRIT 41.5 % (36.0-47.0); HEMOGLOBIN 13.3 g/dL (12.0-15.5); LYMPH # 3.8 x10^3/uL (1.0-4.8); LYMPH % 26 % (24-48); MEAN CORPUSCULAR HEMOGLOBIN 29 pg (25-35); MEAN CORPUSCULAR HGB CONC 32 g/dL (31-37); MEAN CORPUSCULAR VOLUME 91 fL (79-100); MONO # 0.8 x10^3/uL (0.0-1.1); MONO % 6 % (0-9); NEUT # 9.5 x10^3/uL (1.8-7.7); NEUT % 66 % (31-73); PLATELET COUNT 328 x10^3/uL (140-400); RED BLOOD COUNT 4.56 x10^6/uL (3.50-5.40); RED CELL DISTRIBUTION WIDTH 14.4 % (11.5-14.5); WHITE BLOOD COUNT 14.5 x10^3/uL (4.0-11.0)
[2021-05-25] MEDS ORDERED: KETAMINE HCL IN NACL, ISO-OSM 50 MG/5 ML SYRINGE ONE (08:27)
[2021-05-25] MEDS ORDERED: HYDROmorphone 2 MG/ML INJ. ONE ×2 (09:26→12:15)
[2021-05-25] MEDS ORDERED: SUGAMMADEX SODIUM 200 MG/2 ML VIAL. IVP ONE (09:30)
[2021-05-25] MEDS ORDERED: PHENYLEPHRINE in 0.9% NACL PF 1 MG/10 ML SYRINGE. IV ONE (09:37)
[2021-05-25] MEDS ORDERED: IV DEXTROSE 5 %-0.45 % NACL 1,000 ML IV SCH (11:30)
[2021-05-25] MEDS ORDERED: KETOROLAC 15 MG/ML VIAL. IV PRN (11:30)
[2021-05-25] MEDS ORDERED: DEXTROSE 50% 25 GM / 50ML DISP.SYRIN. IV PRN (11:30)
[2021-05-25] MEDS ORDERED: MORPHINE SULFATE 2 MG/ML INJ. IV PRN ×2 (11:30)
[2021-05-25] MEDS ORDERED: 0.9 % SODIUM CHLORIDE 10 ML DISP.SYRIN. IV PRN (11:30)
[2021-05-25] MEDS ORDERED: diphenhydrAMINE HCL 25 MG CAPSULE PO PRN (11:30)
[2021-05-25] MEDS ORDERED: NALOXONE 0.4 MG/ML VIAL. IV PRN (11:30)
[2021-05-25] MEDS ORDERED: oxyCODONE/APAP 5/325 1 TAB TABLET PO PRN (11:30)
[2021-05-25] MEDS ORDERED: diphenhydrAMINE 50 MG/ML VIAL IV PRN (11:30)
[2021-05-25] MEDS ORDERED: IV NORMAL SALINE 1000ML BAG 1,000 ML IV SCH (11:30)
[2021-05-25] MEDS: HYDROmorphone 2 MG/ML INJ. IVP PRN ×2 (12:16→12:35)
--- NOTE | 2021-05-25 12:22 | PDOC4 ---
OPERATIVE NOTE: PreOp Dx: 1.) Pelvic pain, 2.) recurrent cervical dysplasia - ANTONIETTA II on recent bx and ECC, 4.) Prev C/S x 3, 5.) Menorrhagia - resolved with ablation in 2006, 6.) Dyspareunia, 7.) Menopause PostOp Dx: same Procedure: LAVH/BSo Surgeon: Julianna Barnes Anesthesia: GETA EBL: 150 cc Fluids: 1400 cc UOP: 1100 cc Findings: Significant adhesions of the left uterus and left lateral side wall. Omental adhesions to the entire left lateral side wall. Post LEEP changes to cervix almost flushed with vagina. Nml ovaries. Complications: None Specimen: Uterus, cervix, bilateral tubes and ovaries CHIRAG BARNES MD May 25, 2021 12:22
--- NOTE | 2021-05-25 13:50 | NUR ---
O2 per nc had been turned to 1L. on sat went to 92% with last VS so increased to 2L. Patient continues to sleep but easy to arrouse
--- NOTE | 2021-05-25 13:50 | NUR ---
Admit from PACU. Patient drowsy but easily arroused. 2L NC, Dressing x 4 dry and intact. foot pumps on
--- NOTE | 2021-05-25 15:05 | OP ---
DATE OF SURGERY: 05/25/2021 PREOPERATIVE DIAGNOSES: 1. Pelvic pain. 2. Recurrent cervical dysplasia with ANTONIETTA-2 on recent biopsy and ECC. 3. Previous section x 3. 4. Menorrhagia, resolved after an ablation in 2006. 5. Dysmenorrhea. 6. Menopause. POSTOPERATIVE DIAGNOSES: 1. Pelvic pain. 2. Recurrent cervical dysplasia with ANTONIETTA-2 on recent biopsy and ECC. 3. Previous section x 3. 4. Menorrhagia, resolved after an ablation in 2006. 5. Dysmenorrhea. 6. Menopause. PROCEDURE: Laparoscopic-assisted vaginal hysterectomy with bilateral salpingo-oophorectomy. SURGEON: Cody Jauregui MD ANESTHESIA: General endotracheal intubation. ESTIMATED BLOOD LOSS: 150 mL. FLUIDS: 1400 mL URINE OUTPUT: 1100 mL FINDINGS: Significant adhesions of the left uterus to the left lateral sidewall. Also, omental adhesions encompassing the entire left lateral sidewall post-LEEP changes seen to the cervix that was almost flushed with the vagina. Normal ovaries. COMPLICATIONS: None. SPECIMENS: Uterus, cervix, bilateral tubes and ovaries. DESCRIPTION OF PROCEDURE: The patient was taken to the operating room where general endotracheal intubation was obtained without difficulty. The patient was prepped and draped in normal sterile fashion. Attention was first turned to the vagina where a speculum was placed to visualize the cervix. Anterior lip of the cervix was then grasped with a single tooth tenaculum. An acorn uterine manipulator was then placed into the uterine cavity. At that point, the speculum was removed. Bobo catheter was then placed in the patient's bladder. Attention was then turned to the abdomen where a 5 mm skin incision was placed in her infraumbilical fold. Veress needle was introduced into the incision. The abdomen was insufflated to 15 mmHg. Once this had occurred, the Veress needle was removed. The 5 mm trocar was then placed directly into the abdomen. Intraabdominal placement was confirmed with laparoscope. At that point, visualization of the pelvis revealed significant adhesions between the left uterine serosa and the left lateral sidewall as well as significant omental adhesions along the encasing the entire left sidewall. At that point, a second trocar was then attempted to be placed on the left, first by placing an incision approximately two-thirds between the ischial spine and the umbilicus. Once this incision was made, pressure on this incision digitally revealed that the pathway would be through the omentum on the side wall. Since this was the case, a second trocar was first placed on the right. Again, two-thirds between the ischial spine and the umbilicus first by making a 5 mm skin incision and then placing the trocar under direct visualization of the laparoscope. Attempts were made to takedown the omental adhesions, but even with a meticulous dissection, a large portion of the omentum remained attached. It was felt to be a safer option to work around the omental adhesions, so a third trocar was then placed midline along the previous Pfannenstiel incision first by making a 5 mm skin incision and then placing the trocar under direct visualization of the laparoscope. At that point, attention was turned to the left of the uterus, which was attached to the lateral sidewall. Dissection was performed with the [place]'s to find plane to separate the uterus from the sidewall. Once the planes were better well defined, the thicker adhesions of the serosa were taken down with the LigaSure device. Once the left side of the uterus had been freed from the lateral sidewall, the left round ligament was then coagulated and cut with the LigaSure device, this was used to create a bladder flap starting from the left lateral edge to the midline. There were still significant adhesions from her previous C-sections made defining the plane between the bladder and the uterus very difficult. At that point, attention was then turned to the left tube, which was followed up to the fimbria and grasped and elevated to allow for the LigaSure device to take the pedicle of the left ovary and tube. At that point, the infundibulopelvic ligament was coagulated and cut with the LigaSure device and once the tube and ovary were to the level of the uterus, the segment was then moved to the level of the uterus and freed so that it would be removed with the rest of the uterus once the pedicles were taken down. At that point, the LigaSure device was used to serially coagulate and cut to the level of the uterine arteries. At that point, attention was then turned to the right where the tube was then followed out and elevated to allow for the infundibulopelvic ligament to be coagulated and cut with the LigaSure device. Once the tube and ovary were to the level of the uterus attention was then turned to the right round ligament, which was coagulated and cut. At that point, the serosa was undermined to try to create a bladder flap. There were still pretty significant dense adhesions from the scar that made finding a good plane difficult, but as much as the bladder flap could be created laparoscopically was performed. At that point, the LigaSure device was used to serially coagulate and cut the ligaments on the right to the level of the uterine artery. Once the uterus had been relatively freed of all pedicles attention was then turned to the vagina where the cervix was circumferentially cut with the Bovie device. Once this had been performed Metzenbaum scissors were used to enter the anterior cul-de-sac. Once the anterior cul-de-sac had been entered, attention was then turned to the posterior cul-de-sac, which was entered with Townsend scissors. At that point, the left uterosacral ligament was then grasped with a Jyoti clamp. This was clamped, cut and tagged. Once this had been performed, attention was then turned to the right uterosacral ligament, which again was grasped with a Jyoti clamp and then was clamped, cut, clamped and tagged. The uterus was then serially clamped and tied until all the pedicles were free. At that point, the uterus was delivered. Good hemostasis was noted. At that point, the vaginal cuff was closed first by making a itohsy-rn-bjiqa stitch on the left with the second pass including the left uterosacral ligament, this was then tagged. Attention was then turned to the right side of the cuff, once again oybnwh-hn-qogxi stitch was placed with a second pass including the right uterosacral ligament, this was then tagged. Two additional nwkpsx-ao-eyaen stitches were used to close the remainder of the cuff. At that point, good hemostasis was noted. The cuff was irrigated with good hemostasis. Attention was then turned to the abdomen where the vaginal cuff was inspected laparoscopically. Good hemostasis again was noted. The pelvis was then copiously irrigated. At that point, the ureters were observed peristalsing. Once this had been observed, the instruments were removed as well as the trocar. Laparoscopic incisions were closed with 4-0 Monocryl in interrupted fashion. The patient tolerated the procedure well and was taken to recovery room in stable condition. Sponges, laps and needles were correct x 3. Two grams of Ancef were given prior to the procedure. MARYJANE/APRIL DR: MARYJANE/terence TID: [id number] MTDD
--- NOTE | 2021-05-25 16:45 | NUR ---
Patient requests little to be removed. Patient states it is very uncomfortable. Little removed.
[2021-05-25] MEDS: oxyCODONE/APAP 5/325 1 TAB TABLET PO PRN (18:25)
[2021-05-25] MEDS ORDERED: ATORVASTATIN CALCIUM 40 MG TABLET. PO SCH (21:00)
[2021-05-25] MEDS: DOCUSATE SODIUM 100 MG CAPSULE. PO SCH (21:04)
[2021-05-26] MEDS: IBUPROFEN 200 MG TABLET. PO PRN ×2 (04:11→11:58)
[2021-05-26 04:23] VITALS: BP 93/64
[2021-05-26] MEDS ORDERED: LEVOTHYROXINE 50 MCG TABLET PO SCH (06:00)
[2021-05-26 06:13] LABS: BASO # 0.2 x10^3/uL (0.0-0.2); BASO % 1 % (0-3); EOS % 0 % (0-3); HEMATOCRIT 34.8 % (36.0-47.0); HEMOGLOBIN 11.4 g/dL (12.0-15.5); LYMPH # 3.8 x10^3/uL (1.0-4.8); LYMPH % 26 % (24-48); MEAN CORPUSCULAR HEMOGLOBIN 29 pg (25-35); MEAN CORPUSCULAR HGB CONC 33 g/dL (31-37); MEAN CORPUSCULAR VOLUME 90 fL (79-100); MONO # 1.1 x10^3/uL (0.0-1.1); MONO % 7 % (0-9); NEUT # 9.6 x10^3/uL (1.8-7.7); NEUT % 65 % (31-73); PLATELET COUNT 308 x10^3/uL (140-400); RED BLOOD COUNT 3.88 x10^6/uL (3.50-5.40); RED CELL DISTRIBUTION WIDTH 14.2 % (11.5-14.5); WHITE BLOOD COUNT 14.8 x10^3/uL (4.0-11.0)
[2021-05-26 06:30] LABS: CALCIUM 7.9 mg/dL (8.5-10.1); CREATININE 0.7 mg/dL (0.6-1.0); GFR 86.6; POTASSIUM 3.7 mmol/L (3.5-5.1)
[2021-05-26 08:11] VITALS: BP 73/35
[2021-05-26] MEDS ORDERED: ASPIRIN CHEWABLE 81 MG TABLET. PO SCH (09:00)
[2021-05-26] MEDS ORDERED: CITALOPRAM 20 MG TABLET. PO SCH (09:00)
[2021-05-26 09:05] VITALS: BP 97/48
[2021-05-26] MEDS: DOCUSATE SODIUM 100 MG CAPSULE. PO SCH (09:05)
[2021-05-26] MEDS ORDERED: OXYC1TAB15 PO (09:06)
[2021-05-26] MEDS: oxyCODONE/APAP 5/325 1 TAB TABLET PO PRN (09:06)
--- NOTE | 2021-05-26 10:19 | PDOC ---
[employer] EMISSIONS TECHNICIAN PROGRESS NOTE Date of Service: DATE: 05/26/21 TIME: 10:18 Subjective: Pt with good pain control. Sam PO. Voiding. Minimal lochia. Objective: Vital Signs: Vital Signs Date Time Temp Pulse Resp B/P (MAP) Pulse Ox O2 Delivery O2 Flow Rate FiO2 05/25/21 11:40 97.1 101 18 131/51 99 97.1 05/25/21 11:40 Mask 8.0 Vital Signs Date Time Temp Pulse Resp B/P (MAP) Pulse Ox O2 Delivery O2 Flow Rate FiO2 05/26/21 09:06 20 97 Room Air 05/26/21 09:05 88 97/48 (64) 05/26/21 08:11 98.4 98.4 05/25/21 15:55 2.0 Labs: Laboratory Tests Test 05/26/21 05:55 White Blood Count 14.8 x10^3/uL (4.0-11.0) H Red Blood Count 3.88 x10^6/uL (3.50-5.40) Hemoglobin 11.4 g/dL (12.0-15.5) L Hematocrit 34.8 % (36.0-47.0) L Mean Corpuscular Volume 90 fL (79-100) Mean Corpuscular Hemoglobin 29 pg (25-35) Mean Corpuscular Hemoglobin Concent 33 g/dL (31-37) Red Cell Distribution Width 14.2 % (11.5-14.5) Platelet Count 308 x10^3/uL (140-400) Neutrophils (%) (Auto) 65 % (31-73) Lymphocytes (%) (Auto) 26 % (24-48) Monocytes (%) (Auto) 7 % (0-9) Eosinophils (%) (Auto) 0 % (0-3) Basophils (%) (Auto) 1 % (0-3) Neutrophils # (Auto) 9.6 x10^3/uL (1.8-7.7) H Lymphocytes # (Auto) 3.8 x10^3/uL (1.0-4.8) Monocytes # (Auto) 1.1 x10^3/uL (0.0-1.1) Eosinophils # (Auto) 0.0 x10^3/uL (0.0-0.7) Basophils # (Auto) 0.2 x10^3/uL (0.0-0.2) Sodium Level 142 mmol/L (136-145) Potassium Level 3.7 mmol/L (3.5-5.1) Chloride Level 106 mmol/L (98-107) Carbon Dioxide Level 28 mmol/L (21-32) Anion Gap 8 (6-14) Blood Urea Nitrogen 10 mg/dL (7-20) Creatinine 0.7 mg/dL (0.6-1.0) Estimated GFR (Cockcroft-Gault) 86.6 Glucose Level 108 mg/dL (70-99) H Calcium Level 7.9 mg/dL (8.5-10.1) L Laboratory Tests 05/26/21 05:55 Laboratory Tests 05/26/21 05:55 Laboratory Tests 05/26/21 05:55 Physical Exam: GENERAL: No apparent distress. Alert and oriented. HEENT: Head normocephalic, atraumatic. NECK: Supple LUNGS: Clear to auscultation. HEART: RRR, S1, S2 present, pulses intact ABDOMEN: Soft, positive bowel sounds. EXTREMITIES: No cyanosis or edema. NEUROLOGIC: Normal speech, normal tone PSYCHIATRIC: Normal affect, normal mood. SKIN: No ulceration. S/NT/ND No C/C/E Inc: C/D/I Assessment & Plan: A/P 56y s/p LAVH/BSO 1.) PO doing well 2.) Path pending 3.) Indication - Pelvic pain, recurrent cervical dysplasia - ANTONIETTA II on recent bx and ECC 4.) Hgb 13.3 -> 11.4 5.) Hypotension nml heart rate, BP meds held 6.) Menopause - mild symptoms, never ERT/HRT 7.) Hypothyroidism (2/2 partial thyroidectomy) restarted home meds 8.) Depression/anxiety/ADHD restarted home meds 9.) D/c home when meets d/c criteria CHIRAG BARNES MD May 26, 2021 10:19
[2021-05-26 11:25] VITALS: BP 85/51
[2021-05-26 11:55] VITALS: BP 98/60
--- NOTE | 2021-05-26 12:00 | NUR ---
Pt. d/c to home per order. Pt. taken down to entrance in wheelchair with nursing staff. No questions verbalized over d/c instructions at this time.
--- NOTE | 2021-05-26 13:57 | DS ---
DATE OF DISCHARGE: 05/26/2021 ADMISSION DIAGNOSES: 1. Pelvic pain. 2. Recurrent cervical dysplasia with ANTONIETTA-2 on recent biopsy and ECC. 3. Previous section x 3. 4. History of menorrhagia with resolution after ablation in 2006. 5. Dyspareunia. 6. Menopause. DISCHARGE DIAGNOSES: 1. Pelvic pain. 2. Recurrent cervical dysplasia with ANTONIETTA-2 on recent biopsy and ECC. 3. Previous section x 3. 4. History of menorrhagia with resolution after ablation in 2006. 5. Dyspareunia. 6. Menopause. PROCEDURE: Laparoscopic-assisted vaginal hysterectomy with bilateral salpingo-oophorectomy. BRIEF HOSPITAL COURSE: The patient is a 56-year-old 3, para 3-0-0-3, who presented for scheduled surgery. The patient was initially referred after an abnormal Pap, the patient underwent a colposcopy revealing her to have ANTONIETTA 2 on her biopsy and ECC. The patient had a LEEP 4 years ago. At that time, discussion was held with the patient regarding excisional or ablative procedure, the patient desired a hysterectomy, the patient understood that hysterectomy was not the primary treatment for dysplasia, but with her recurrence in her pelvic pain it was felt to be a reasonable option. The patient underwent said procedure. Of note, the patient underwent a heart catheterization prior to her evaluation for her cervical dysplasia. She was found to have a small blockage. The patient underwent LAVH, BSO on 05/25/2001. See operative note for full detail. By postop day #2, the patient was meeting all discharge criteria and subsequently discharged home. Of note, the patient's hemoglobin on presentation was 13.3 and after surgery was found to be 11.4. DISCHARGE INSTRUCTIONS: The patient was told not to lift anything greater than 20 pounds, have pelvic rest for 6 weeks, not to drive on narcotics. CALL IF: The patient was to call if she had fevers, chills, nausea, vomiting, abdominal pain or any additional questions or concerns. FOLLOWUP APPOINTMENT: The patient was to follow up on 06/01/2021 at 1:15 p.m. in [place] for an incision check. DISCHARGE MEDICATIONS: The patient was given a prescription for Percocet 5, 15 pills; Motrin 800 mg, 30 pills and Colace 100 mg, 30 pills. MARYJANE/APRIL DR: Rena TID: [id number]
--- NOTE | 2021-05-27 14:11 | PATHOLOGY ---
[facility] Accession Number: [id number] . 01 Material submitted: . uterus - UTERUS, BILATERAL FALLOPIAN TUBES AND OVARIES . 01 Clinical history: . ABNORMAL PAP SMEAR LAPAROSCOPIC OVARIES, VAGINAL HYSTERECTOMY UTERUS, CERVIX, RT FALLOPIAN TUBES, AND OVARIES BILATERAL, LEFT FALLOPIAN TUBES UNATTACHED . 02 Diagnosis: Uterus, bilateral fallopian tubes and ovaries, laparoscopic-assisted vaginal hysterectomy with bilateral salpingo-oophorectomy: - Focal ANTONIETTA III involving endocervical glands, with a background of focal mild to moderate dysplasia (ANTONIETTA I-II). - Chronic endocervicitis. - Status post endometrial ablation with fibrosis and focal chronic inflammation and focal residual atrophic endometrium. - Uterine serosal adhesions. - Involutional changes of bilateral fallopian tubes. - Few right small paratubal cysts. - Involutional changes of bilateral ovaries with small serous inclusion cysts of right ovary: - Small leiomyoma of right paraovarian soft tissue. . (JPM:mm; 05/26/2021) [facility] 05/27/2021 1337 Local . 02 Comment: There is no evidence of malignancy. . (JPM:mml; 05/26/2021) . 02 Electronically signed: . Ciaran Bermudez MD, Pathologist NPI- [id number] . 01 Gross description: . Fixative: Formalin Labeled: Uterus cervix, ovaries x 2, right and left fallopian tube Specimen received: A uterus with cervix and with bilateral fallopian tubes and ovaries Uterus weight: 36 g Uterus: 7.2 cm fundus to cervix, 4.5 cm cornu to cornu, 2.2 cm anterior to posterior Serosa: [place]-hoskins, dusky, hemorrhagic and focally disrupted (1.3 x 0.6 cm and 1.5 x 1.0 cm) with abundant fine and thickened adhesions. The largest disruption exposes the underlying endocervical canal. Cervix: 3.8 x 2.6 cm, the cervical mucosa is pink-long, hemorrhagic, dusky and without a well-defined ectocervical edge. Cervical os: Central, circular and patent, measuring 0.6 cm in diameter The anterior lower uterine neck is inked blue and the posterior lower uterine neck is inked black. . Endocervical canal: 3.9 cm in length x 0.2 cm-0.8 cm in diameter. The superior most aspect of the endocervical canal is markedly constricted and narrows down to 0.1 cm in diameter Endometrial cavity: Slender, constricted and oblong, 2.5 x 0.4 cm. The superior most endometrium comes to within 0.4 cm from the fundic serosa. Endometrium: very minimal, hoskins-pink to focally pale-yellow and smooth Endometrial thickness: At most 0.1 cm Myometrium: [place]-hoskins and trabecular Myometrium thickness: Up to 1.1 cm . Right fallopian tube: Is consistent with having been previously ligated, fimbriated; 3.9 cm in length by 0.3 cm - 0.5 cm in diameter Right fallopian tube cut surface: Unremarkable Right ovary: 2 g, 2.9 x 1.4 x 0.8 cm Right ovarian cut surface: Unremarkable. Within the attached soft tissue is a hoskins-long, well-circumscribed nodule (0.4 x 0.4 x 0.4 cm) and sectioning reveals hoskins glistening cut surfaces. Left fallopian tube: Received in 2 pieces and is consistent with having been previously ligated, with shaggy fimbria; 3.5 cm in length x 0.3 cm-0.5 cm in diameter Left fallopian tube cut surface: Unremarkable Left ovary: 3 g, 4.0 x 1.1 x 0.8 cm Left ovarian cut surface: Unremarkable Photographs are taken. [employer] sections to include the entirety of the cervix are submitted as follows: A1-A2: 12:00-3:00 cervix, entirely submitted A3-A6: 3:00-6:00 cervix, entirely submitted A7: 6:00-9:00 cervix, entirely submitted A8: 9:00-12:00 cervix, entirely submitted A9: Posterior endomyometrium to serosa A10: Additional posterior endomyometrium to serosa with the 2 smaller sections showing endometrium proximity to overlying fundic serosa A11: Anterior endometrium to serosa and anterior endomyometrial shaving A12: Anterior and posterior lengthwise sections at endometrial and endocervical junction to show area of constriction A13: Serosal shavings A14: Right fallopian tube A15: Right ovary to include the entirety of the nodule A16: Left fallopian tube A17: Left ovary (FOND DU LAC; 05/25/2021) DKA/DKA 05/25/2021 1606 Local . 02 Pathologist provided ICD-10: D06.7, N72, N83.8, D25.9 . 02 CPT . 610857 Specimen Comment: A courtesy copy of this report has been sent to [phone], [phone] Specimen Comment: [id number] Specimen Comment: Report sent to / DR SHIPLEY Specimen Comment: A duplicate report has been generated due to demographic updates. Performed at: 01 [facility] [address] [facility] [address], [place] [id number] MD Garry Spaulding MD Phone: [phone] Performed at: 02 [facility] [address], [place] [id number] MD Ciaran Bermudez MD Phone: [phone]
== END 2021-05-26 12:05 | disposition home or self-care (01) ==
LOC: SURG 06:27 → 3 SO LND 11:17
PROVIDERS: ADMIT Obstetrics & Gynecology; ATTEND Obstetrics & Gynecology
DX: N92.0 Excessive and frequent menstruation with regular cycle (principal); Z20.822 Contact with and (suspected) exposure to COVID-19; N94.10 Unspecified dyspareunia; R10.2 Pelvic and perineal pain; E03.9 Hypothyroidism, unspecified; K66.0 Peritoneal adhesions (postprocedural) (postinfection); M79.7 Fibromyalgia; N87.1 Moderate cervical dysplasia; F41.9 Anxiety disorder, unspecified; M19.90 Unspecified osteoarthritis, unspecified site; N94.6 Dysmenorrhea, unspecified; Z79.899 Other long term (current) drug therapy; Z78.0 Asymptomatic menopausal state; Z98.891 History of uterine scar from previous surgery; Z87.410 Personal history of cervical dysplasia; Z98.890 Other specified postprocedural states; Z90.49 Acquired absence of other specified parts of digestive tract
CPT/HCPCS: 36415; 58552; 80048; 80053; 85025; 86850; 86900; 86901; 96374; A4314; A4930; A6219; G0378; G0379; J0330; J0690; J1100; J1170; J1885; J2250; J2370; J2405; J2704; J3010; J3490; A4322; A4452; A4657; Q9968